=== PATIENT | female | born 1985 | race African-American/Black ===

== ENCOUNTER 2016-05-15 13:25 | Emergency (ER) | payer OTHER ==
[~2016-05-15] VITALS: Ht 167.6 cm; Wt 85.7 kg
[~2016-05-15 13:25] MED LIST: LIORESAL 10MG T10 MG PO; MOTRIN 600 MG600 MG PO; NAPROSYN500 M1 PO; NAPROXEN500 M1 PO; NECON 1-35-281 EACH PO; TRAMADOL50 MG PO
[2016-05-15] MEDS ORDERED: MULTI-DAY VITA1 EACH PO (14:28)
[2016-05-15 14:37] LABS: ABSOLUTE BASOPHIL COUNT 0 /CUMM (0.0-0.2); ABSOLUTE EOSINOPHIL COUNT 0.2 /CUMM (0.0-0.7); ABSOLUTE GRANULOCYTE CT 7.4 /CUMM (1.4-6.5); ABSOLUTE LYMPH COUNT 1.7 /CUMM (1.2-3.4); BASOPHIL % 0.4 % (0.0-2.0); EOSINOPHIL % 2.1 % (0-5); GRANULOCYTE % 71.5 % (42.2-75.2); HEMATOCRIT 41.6 % (37-47); MEAN CORPUSCULAR HGB 28.1 PG (27.0-31.0); MEAN CORPUSCULAR HGB CONC 32.7 G/DL (33.0-37.0); MEAN CORPUSCULAR VOLUME 85.8 FL (81.0-99.0); MEAN PLATELET VOLUME 7.9 FL (7.4-10.4); PLATELET COUNT 255 /CUMM (130-400); RBC DISTRIBUTION WIDTH 14.6 % (11.5-14.5); RED BLOOD CELL CT 4.85 /CUMM (4.20-5.40); WHITE BLOOD CELL COUNT 10.4 /CUMM (4.8-10.8)
--- NOTE | 2016-05-15 15:41 | ED CARDIAC/CP/PALPITATIONS ---
History of Present Illness General Chief Complaint: Chest Pain Stated Complaint: CP; HEADACHE; ABD PAIN Source: patient Exam Limitations: no limitations Vital Signs & Intake/Output Vital Signs & Intake/Output Vital Signs Date Time Temp Pulse Resp B/P Pulse O2 O2 Flow FiO2 Ox Delivery Rate 05/15 1842 50 16 128/67 99 Room Air 05/15 1607 97.2 58 16 125/60 100 Room Air 05/15 1429 Room Air 05/15 1336 98.7 52 16 123/78 98 Room Air Allergies Coded Allergies: NO KNOWN ALLERGIES (03/04/15) Reconcile Medications Ibuprofen 800 MG TABLET 1 TAB PO TID pain Multivitamin (Multi-Day Vitamins) 1 EACH TABLET 1 TAB PO DAILY VITAMIN SUPPORT (Reported) Norethindrone-Ethinyl Estrad (Necon 1-35-28 Tablet) 1 EACH TABLET 1 TAB PO DAILY BCP (Reported) Triage Note: PT HAVEING ABD PAIN THAT SHOOTS INTO HER EPIGASTRIC AREA. PT WITH MULTIPLE COMPLAINTS AT TRIAGE. PT STATES ALL S/S STARTED ABOUT 12. Triage Nurses Notes Reviewed? yes Onset: Abrupt Duration: hour(s):, intermittent Timing: recent history Quality/Severity: moderate, severe, sharp Location: central, back : No Patient currently breastfeeds: No HPI: 31-year-old female comes into emergency room with complaints of sudden onset chest pain and back pain at began around noon today. Denies any shortness of breath fever or cough. Patient reports that the pain moves around all across her back and into her chest and down into her abdomen. Severe in nature. Patient reports it was sudden onset in nature. Denies any prior history of symptoms like this before reports that she's had some chest pain issues in the past. Patient has never been worked up for a or seen a genetics physician. (LINA METZ) Past History Travel History Traveled to [place] past 21 day No Medical History Any Pertinent Medical History? see below for history Neurological: NONE EENT: NONE Cardiovascular: NONE Respiratory: NONE Gastrointestinal: NONE Hepatic: NONE Renal: NONE Musculoskeletal: BROKEN JAW Psychiatric: NONE Endocrine: NONE Blood Disorders: NONE Cancer(s): NONE FLEXOGRAPHIC PRINTING MACHINIST/Reproductive: NONE Surgical History Surgical History: non-contributory Psychosocial History What is your primary language Luxembourger Tobacco Use: Never used ETOH Use: occasional use Illicit Drug Use: denies illicit drug use Family History Hx Contributory? No (LINA METZ) Review of Systems Review of Systems Constitutional: Reports: no symptoms. EENTM: Reports: no symptoms. Respiratory: Reports: no symptoms. Cardiovascular: Reports: see HPI. GI: Reports: no symptoms. Genitourinary: Reports: no symptoms. Musculoskeletal: Reports: see HPI. Skin: Reports: no symptoms. Neurological/Psychological: Reports: no symptoms. Hematologic/Endocrine: Reports: no symptoms. Immunologic/Allergic: Reports: no symptoms. All Other Systems: Reviewed and Negative (LINA METZ) Physical Exam Physical Exam General Appearance: well developed/nourished, no apparent distress, alert, awake Head: atraumatic, normal appearance Eyes: Bilateral: normal appearance, EOMI. Ears, Nose, Throat: normal pharynx, normal ENT inspection Neck: normal inspection, full range of motion Respiratory: normal breath sounds, no respiratory distress Cardiovascular: regular rate/rhythm Gastrointestinal: soft Back: normal inspection Extremities: normal inspection, normal range of motion Neurologic/Psych: awake, alert, oriented x 3, normal gait, normal mood/affect Skin: intact, normal color Core Measures ACS in differential dx? No Severe Sepsis Present: No Septic Shock Present: No (LINA METZ) Progress Differential Diagnosis: AMI, aortic dissection, cholecystitis, costochondritis, intracranial hemorrhage, musculoskeletal pain, myocarditis, pancreatitis, pericarditis, pneumonia, pneumothorax, pulmonary embolism, PUD/GERD, respiratory failure, rib fracture, sepsis, unstable angina Plan of Care: Orders Procedure Date/time Status TROPONIN LEVEL 05/15 1830 Complete EKG 05/15 1830 Active Telemetry/Senior Asp Net Developer 05/15 1540 Active URINE 05/15 1538 Complete TROPONIN LEVEL 05/15 1343 Complete COMPREHENSIVE METABOLIC PANEL 05/15 1343 Complete CBC WITHOUT DIFFERENTIAL 05/15 1343 Complete EKG 05/15 1327 Active Current Medications Sig/Roxana Start time Last Medication Dose Stop Time Status Admin Carvedilol 3.125 MG ONCE ONE 05/15 1830 CAN (Coreg) 05/15 1831 Cefuroxime Sodium 250 MG ONCE ONE 05/15 1830 CAN (Ceftin) 05/15 1831 Laboratory Tests 05/15/16 1830: Troponin I < 0.01 05/15/16 1554: Urine Test NEGATIVE 05/15/16 1431: Anion Gap 7, Estimated GFR > 60, BUN/Creatinine Ratio 13.3, Glucose 81, Calcium 9.3, Total Bilirubin 1.8 H, AST 23, ALT 22, Alkaline Phosphatase 46, Troponin I < 0.01, Total Protein 7.8, Albumin 4.0, Globulin 3.8, Albumin/Globulin Ratio 1.1 , CBC w Diff NO MAN DIFF REQ, RBC 4.85, MCV 85.8, MCH 28.1, RDW 14.6 H, MPV 7.9 , Gran % 71.5, Lymphocytes % 16.6 L, Monocytes % 9.4 H, Eosinophils % 2.1, Basophils % 0.4, Absolute Granulocytes 7.4 H, Absolute Lymphocytes 1.7, Absolute Monocytes 1.0 H, Absolute Eosinophils 0.2, Absolute Basophils 0, PUBS MCHC 32.7 L Diagnostic Imaging: Viewed by Me: CT Scan. Discussed w/RAD: CT Scan. Radiology Impression: EXAM TYPE: CAT - CT ABD & PELVIS W IV CONTRAST; CTA CHEST- PULMONARY EMBOLISM EXAMINATION: 1. CTA chest: 2. CT ABDOMEN AND PELVIS WITH CONTRAST CLINICAL INFORMATION: Chest pain. Abdominal pain. Back pain. COMPARISON : Portable chest x-ray 03/04/2015, 11/04/2015 TECHNIQUE: A noncontrast localizer was performed, followed by the administration of 120 mL Optiray [address] of the chest was then performed. Coronal and sagittal reformatted and 3-D technique MIP images of the chest were completed at the CT scanner and reviewed on the PACS workstation. No adverse effects were reported. Images were then performed through the abdomen and pelvis. Coronal and sagittal reformatted images performed at CT scanner by technologist. DLP: 923.04 mGy-cm. FINDINGS: 1. CTA CHEST; VASCULAR: The main pulmonary artery, secondary and tertiary branches of the pulmonary artery are normally opacified with no evidence of pulmonary embolism. The aorta and great vessels are unremarkable. MEDIASTINUM: No mediastinal mass. No significant lymphadenopathy. There is no pericardial effusion. LUNGS: The lungs are clear. No nodule or infiltrate. Central bronchial airways open. FLUID: There is no pericardial effusion. There is no pleural effusion. AXILLA: No significant lymphadenopathy. 2. CT SCAN ABDOMEN PELVIS: LIVER, GALLBLADDER, AND BILIARY TREE: The liver is normal in size, shape, and attenuation. No focal hepatic lesion or biliary ductal dilatation is present. The gallbladder is unremarkable with no evidence of radiopaque gallstones, gallbladder wall thickening, or obvious pericholecystic inflammatory changes. PANCREAS: Unremarkable. SPLEEN: Unremarkable. ADRENAL GLANDS: Unremarkable. KIDNEYS AND URETERS: The kidneys are normal in size, shape , and attenuation. No hydronephrosis, hydroureter, or calculi seen. No perinephric stranding. BLADDER: Unremarkable. GASTROINTESTINAL TRACT: The small and large bowel are unremarkable. The appendix is not identified. There is no inflammation the mesentery. MESENTERY: No inflammation. Small amount of fluid in the cul-de-sac which can be physiologic. ABDOMINAL WALL: Fat-containing umbilical hernia. LYMPH NODES: Normal. VASCULAR: Unremarkable. PELVIC VISCERA: Uterus is anteverted. No adnexal abnormality. OSSEOUS STRUCTURES: Unremarkable. IMPRESSION: 1. Normal CT of chest. No evidence of pulmonary embolism. 2. Normal CT of the abdomen and the pelvis. DICTATED BY: DARINEL MOSQUERA MD DATE/TIME DICTATED:05/15/161707 VICE PRESIDENT OF SOFTWARE DEVELOPMENT:CHERRY DATE/TIME TRANSCRIBED:1707 Initial ED EKG: normal intervals, normal p-waves, normal sinus rhythm, rate (50) Prior EKG: unchanged Comments: 05/15/2016 8:40:45 PM Patient clinically looks well. Nontoxic-appearing. Patient has been bradycardic in the past. EKG is unchanged. [address] angiogram for any type of pulmonary embolism. Patient clinically looks well. Nontoxic-appearing. No signs of dissection on the CAT scan. Etiology of pain is unclear but at this time patient is safe to be discharged. Return if any other concerns worsening symptoms. Patient understands and agrees with plan of care. Case discussed with Dr. nguyen. (LINA METZ) Departure Departure Disposition: HOME OR SELF CARE Condition: Stable Clinical Impression Primary Impression: Atypical chest pain Referrals: ZHAO WHATLEY,SHYANNE GONZALEZ MD,CHACHO (PCP/Family) Additional Instructions: Follow-up with genetics physician provided as well as your primary care doctor. Return if any other concerns worsening symptoms. Please go over all results of today's visit with your primary care doctor. Contact your primary care doctor to let them know you were here in the emergency room. There may be nonspecific findings which may not be related to your visit today here in the emergency room but may require further evaluation and chronic monitoring by your primary care doctor. If you had a laceration today the chance of foreign body always remains. You should follow-up with your primary care doctor for recheck in 3-5 days for a wound check. If you had an x-ray done there is a chance that a fracture could have been missed on initial read and you should follow-up with your primary care doctor for repeat x-rays if symptoms persist. If your blood pressure was elevated here in the emergency room please have rechecked by her primary care doctor within the next 48 hours by your primary care doctor. If you were prescribed a narcotic here in the emergency room or any type of controlled substances you're not allowed to drive while taking this medication or operate any type of heavy machinery. Narcotics can make you feel lightheaded dizziness nausea and can cause constipation. You may need to shredder picker a stool softener. Thank you for choosing [facility] emergency room. Please return to the emergency room immediately if you have any other concerns worsening of symptoms. Departure Forms: Customer Survey General Discharge Information Prescriptions: Current Visit Scripts Ibuprofen 1 TAB PO TID #30 TAB (LINA METZ) PA/HAND FLESHER Co-Sign Statement Statement: ED Attending supervision documentation- [] I saw and evaluated the patient. I have also reviewed all the pertinent lab results and diagnostic results. I agree with the findings and the plan of care as documented in the PA's/HAND FLESHER's documentation. x I have reviewed the ED Record and agree with the PA's/HAND FLESHER's documentation. [] Additions or exceptions (if any) to the PAs/HAND FLESHER's note and plan are summarized below: [] (DAVE WHATLEY,JOS) Critical Care Note Critical Care Note Critical Care Time: non-applicable (LINA METZ)
--- NOTE | 2016-05-15 17:22 | CT SCAN REPORT ---
EXAMINATION: 1. CTA chest: 2. CT ABDOMEN AND PELVIS WITH CONTRAST CLINICAL INFORMATION: Chest pain. Abdominal pain. Back pain. COMPARISON: Portable chest x-ray 03/04/2015, 11/04/2015 TECHNIQUE: A noncontrast localizer was performed, followed by the administration of 120 mL Optiray [address] of the chest was then performed. Coronal and sagittal reformatted and 3-D technique MIP images of the chest were completed at the CT scanner and reviewed on the PACS workstation. No adverse effects were reported. Images were then performed through the abdomen and pelvis. Coronal and sagittal reformatted images performed at CT scanner by technologist. DLP: 923.04 mGy-cm. FINDINGS: 1. CTA CHEST; VASCULAR: The main pulmonary artery, secondary and tertiary branches of the pulmonary artery are normally opacified with no evidence of pulmonary embolism. The aorta and great vessels are unremarkable. MEDIASTINUM: No mediastinal mass. No significant lymphadenopathy. There is no pericardial effusion. LUNGS: The lungs are clear. No nodule or infiltrate. Central bronchial airways open. FLUID: There is no pericardial effusion. There is no pleural effusion. AXILLA: No significant lymphadenopathy. 2. CT SCAN ABDOMEN PELVIS: LIVER, GALLBLADDER, AND BILIARY TREE: The liver is normal in size, shape, and attenuation. No focal hepatic lesion or biliary ductal dilatation is present. The gallbladder is unremarkable with no evidence of radiopaque gallstones, gallbladder wall thickening, or obvious pericholecystic inflammatory changes. PANCREAS: Unremarkable. SPLEEN: Unremarkable. ADRENAL GLANDS: Unremarkable. KIDNEYS AND URETERS: The kidneys are normal in size, shape, and attenuation. No hydronephrosis, hydroureter, or calculi seen. No perinephric stranding. BLADDER: Unremarkable. GASTROINTESTINAL TRACT: The small and large bowel are unremarkable. The appendix is not identified. There is no inflammation the mesentery. MESENTERY: No inflammation. Small amount of fluid in the cul-de-sac which can be physiologic. ABDOMINAL WALL: Fat-containing umbilical hernia. LYMPH NODES: Normal. VASCULAR: Unremarkable. PELVIC VISCERA: Uterus is anteverted. No adnexal abnormality. OSSEOUS STRUCTURES: Unremarkable. IMPRESSION: 1. Normal CT of chest. No evidence of pulmonary embolism. 2. Normal CT of the abdomen and the pelvis.
[2016-05-15 18:42] VITALS: BP 128/67
[2016-05-15] MEDS ORDERED: IBUPROFEN800 M1 PO (19:54)
== END 2016-05-15 19:55 ==
LOC: ERH 13:25
PROVIDERS: Emergency Medicine
DX: R07.89 Other chest pain (principal); R10.9 Unspecified abdominal pain; M54.9 Dorsalgia, unspecified
CPT/HCPCS: 74177; 81025; 93005; 93010; 96374; J1885